=== PATIENT | female | born 1950 | race Caucasian/White ===

== ENCOUNTER 2019-03-08 12:03 | Day surgery (SDC) | payer MEDICARE, OTHER ==
[~2019-03-08] VITALS: Ht 165.1 cm; Wt 108.0 kg
--- NOTE | ~2019-03-08 | OR ---
[facility] [address], [place] [address] Draft DATE OF OPERATION: 03/08/2019 SURGEON: Estevan Thompson MD PREOPERATIVE DIAGNOSIS: Left abnormal mammogram (microcalcifications, inner lower aspect). POSTOPERATIVE DIAGNOSIS: Left abnormal mammogram (microcalcifications, inner lower aspect). PROCEDURE: Needle localized wide excisional breast biopsy. ANESTHESIA: General LMA; Estevan Garcia CRNA; and local 10 mL of 0.25% Marcaine with epinephrine. INDICATION: This 68-year-old white woman is a patient of AKANKSHA Godfrey, and was found to have an abnormal mammogram with multiple microcalcifications considered BI-RADS category 4. These were located in the left medial and lower breast. There was no palpable abnormality. Notably, she underwent left breast biopsy by me in 2007, 11 years ago on the left upper medial aspect showing atypical hyperplasia, but no sign of malignancy. A mammogram in 2019 showed an abnormality of microcalcifications. Recommendation was for image-guided biopsy. Attempts at this were unsuccessful by Dr. Sotelo as far as ability to localize the lesion stereotactically and obviously not visible on ultrasound. On that basis, she had recommended needle localized excisional biopsy and that is the purpose of operation today. She understands risks of bleeding, infection, and other unforeseen complications including cosmetic deformity and need for additional treatment should malignancy be found. She understands that and she wished to proceed. FINDINGS: The needle was entered into the left breast from medial aspect. I had reviewed the images with the radiologist prior to operation noting the microcalcifications in the midportion of the wire. Initial excision, which was meticulous and reasonably wide I thought, showed no microcalcifications in the specimen. On that basis, additional excision of tissue (excision of cavity) was undertaken. The 2nd specimen did confirm microcalcifications as hoped. DESCRIPTION OF PROCEDURE: The patient was received from radiology suite with the wire emanating from the medial PATIENT NAME: ERIKA ORANTES OPERATIVE REPORT DATE OF : 50 REPORT #: [id number] PHYSICIAN: ESTEVAN THOMPSON MD PCP: JOS BANERJEE REPORT IS CONFIDENTIAL AND NOT TO BE RELEASED WITHOUT AUTHORIZATION [facility] [address], [place] [address] Draft aspect of the left breast. She was taken to operation and given a general anesthetic. Preoperative antibiotic Ancef was given. Sequential compression device stockings used and heparin subcutaneously administered. The area of the wire entering the breast was palpated and the area of the end of the wire reasonably well discerned. A transverse incision was made not far from the needle. An incision was carried through the dermis with electrocautery. The wire was delivered into the wound and Allis clamp was used to grab the parenchyma. Using electrocautery, wide excision was undertaken along the course of the wire, which was a generous excision actually. The specimen was passed for specimen radiograph. The wound was then closed in layers of interrupted 2-0 Vicryl after assuring hemostasis and irrigating with antibiotic containing saline solution. Steri-Strips were applied as was Mepilex, silver sponge dressing. By this point, the specimen radiograph report returned from Dr. Sotelo showed there were no microcalcifications in the specimen despite a high probability it would be. On that basis, the wound was opened and the parenchyma of the breast grasped in the area of the biopsy cavity, which was linear in its configuration. Wide excision was undertaken both medially, superior, inferior, and deeply. This excision of the biopsy cavity was then sent for specimen radiograph. Meanwhile, the wound was irrigated. Hemostasis once again assured and parenchyma closed with interrupted 2-0 Vicryl and a running subcuticular 3-0 Vicryl to the skin. By this point, the specimen report had confirmed microcalcifications to be in the excised specimen. Steri-Strips had been applied to the wound after closure of the incision and Mepilex silver sponge dressing applied as was an OpSite. The patient tolerated the procedure well. BLOOD LOSS: Less than 20 mL in aggregate. COUNTS: Sponge, needle, and instrument counts reported as correct x3. MD DEMETRIA Kelly/VENKATESHL /[id number] cc: Bob Sotelo MD PATIENT NAME: ERIKA ORANTES OPERATIVE REPORT DATE OF : 50 REPORT #: [id number] PHYSICIAN: ESTEVAN THOMPSON MD PCP: JOS BANERJEE REPORT IS CONFIDENTIAL AND NOT TO BE RELEASED WITHOUT AUTHORIZATION [address] [address] Draft AKANKSHA Godfrey Copies: BOB SOTELO MD, PHYLLIS FNP ~ PATIENT NAME: ERIKA ORANTES OPERATIVE REPORT DATE OF : 50 REPORT #: [id number] PHYSICIAN: ESTEVAN THOMPSON MD PCP: JOS BANERJEE REPORT IS CONFIDENTIAL AND NOT TO BE RELEASED WITHOUT AUTHORIZATION
[~2019-03-08 12:03] MED LIST: ALFALFA MC; ALPRAZOLAM0.25 MG PO; ARNUITY ELLIPT50 MCG; ASPIR 8181 MG PO; BIOTIN5 M1 PO; DAPSONE25 MG PO; FELODIPINE ER10 MG PO; FUROSEMIDE40 MG PO; GINKGO BILOBA60 M1 PO; GLUCOSAMINE &1 EAC1 PO; LOSARTAN POTASS50 MG PO; MELOXICAM7.5 MG/5 M PO; METOPROLOL SUCC25 MG PO; METRONIDAZOLE45 GM TP; MULTI VITAMIN1 EACH PO; OMEGA-31000 MG PO; POTASSIUM CHLO10 ME1 PO; PREDNISONE10 MG PO; SINGULAIR10 MG PO; SYNTHROID100 MCG PO; TRIAMTERENE-HC1 EAC1 PO; ULTRAM50 MG PO; VASOTEC20 MG PO; VENTOLIN HFA18 GM INH
[2019-03-08] MEDS ORDERED: PAROXETINE HCL20 MG PO (12:41)
[2019-03-08] MEDS ORDERED: ASPIR-LOW81 MG PO (12:42)
[2019-03-08] MEDS ORDERED: FLUTICASONE P15.8 ML NAS (12:46)
[2019-03-08] MEDS ORDERED: CYCLOBENZAPRINE10 MG PO (12:48)
--- NOTE | 2019-03-08 16:05 | NUR ---
03/08/19 1605 Micaela Ledesma 1554-PATIENT ARRIVED TO PACU ON 10L MASK NONAROUSABLE. INTERMITTENT JAW THRUST TO MAINTAIN OPEN AIRWAY.SR. INCISION SITE TO LEFT BREAST CDI. LUNGS AUSCULTATED BY AMBER SINGH SHALLOW. 1600-HOB ELEVATED PATIENT MAINTAINING OWN AIRWAY. RR EVEN. PATIENT SLOWLY OPENING EYES. LIFTING HANDS TO FACE. 1604-ORAL AIRWAY REMOVED. PATIENT ASKING FOR DRINK OF WATER ORIENTED TO PACU AND WAITING FOR WATER. PATIENT VERY DROWSY DOZOES BACK TO SLEEP. PLACED ON 6L MASK.
[2019-03-08] MEDS ORDERED: IBUPROFEN600 MG PO (16:06)
[2019-03-08] MEDS ORDERED: TYLENOL325 MG PO (16:07)
[2019-03-08] MEDS ORDERED: OXYCODON-ACETA1 EAC2 PO (16:08)
--- NOTE | 2019-03-08 16:45 | NUR ---
ICED WATER AND PUDDING GIVEN. CALL LIGHT W/IN REACH.
--- NOTE | 2019-03-08 17:39 | NUR ---
ZAY GARCIA CALLED REGARDING EXTENDING PATIENT'S RECOVERY. MESSAGE SENT TO DR. THOMPSON LETTING HIM KNOW PATIENT WILL BE IN ROOM 123.
--- NOTE | 2019-03-08 17:54 | NUR ---
pt arrived to room 123 bedside report from anthony stroud. pt alert and oriented on arrival, she reports comfortable at this time.
--- NOTE | 2019-03-08 19:05 | NUR ---
PT GIVEN D/C EDUCATION ON FOLLOW UP, SIGNS AND SYMPTOM TO SEEK EMERGENCY CARE. MEDICATIONS LAST DOSE NEXT DOSE. PT HAS MEET ALL DISCHARGE PARAMETERS, INCLUDING AMBUALTING TO BATHROOM AND VOIDING. RX GIVEN.
--- NOTE | 2019-03-08 19:13 | NUR ---
IV SITE REMOVED WNL TIP INTACT
== END 2019-03-08 19:00 | disposition home or self-care (01) ==
LOC: DS 12:03 → EDSTATUS 13:00 → DS 13:00 → US 13:00 → MS 17:45 → DS 19:00
PROVIDERS: Surgery
PROC: 0HBU0ZX Excision of Left Breast, Open Approach, Diagnostic (ICD-10-PCS; principal; 2019-03-08 14:00)
DX: N60.12 Diffuse cystic mastopathy of left breast (principal); R92.0 Mammographic microcalcification found on diagnostic imaging of breast; I10 Essential (primary) hypertension; E03.9 Hypothyroidism, unspecified; J45.909 Unspecified asthma, uncomplicated; F41.9 Anxiety disorder, unspecified; G47.33 Obstructive sleep apnea (adult) (pediatric); E66.9 Obesity, unspecified; Z79.899 Other long term (current) drug therapy; Z79.52 Long term (current) use of systemic steroids; Z79.82 Long term (current) use of aspirin; Z68.39 Body mass index [BMI] 39.0-39.9, adult
CPT/HCPCS: 00404; 19281; 76098; 88305; J0690; J1100; J1644; J1885; J2250; J2270; J2405; J2704; J2765; J3010; J7120

== ENCOUNTER 2019-10-18 12:14 | Day surgery (SDC) | payer MEDICARE, OTHER ==
[~2019-10-18] VITALS: Ht 165.1 cm; Wt 108.4 kg
[~2019-10-18 12:14] MED LIST changes: +ASPIR-LOW81 MG PO; +CYCLOBENZAPRINE10 MG PO; +FLUTICASONE P15.8 ML NAS; +IBUPROFEN600 MG PO; +OXYCODON-ACETA1 EAC2 PO; +PAROXETINE HCL20 MG PO; +TYLENOL325 MG PO
[2019-10-18] MEDS ORDERED: NEURONTIN300 MG PO (12:37)
[2019-10-18] MEDS ORDERED: LISINOPRIL10 MG PO (12:38)
--- NOTE | 2019-10-18 14:01 | NUR ---
10/18/19 1401 Zayra Gardner 1345 PT ARRIVED IN PACU WIDE AWAKE TALKING TO STAFF. ABD SOFT. BLOOD SUGAR 68 ON ARRIVAL. 1350 SITTING UP IN BED SIPPING ON GRAPE JUICE. 1355 DR AT BEDSIDE TALKING WITH PT.
--- NOTE | 2019-10-20 17:27 | OR ---
[facility] [address] [place], [place] [address] Signed DATE OF OPERATION: 10/18/2019 SURGEON: Estevan Thompson MD PREOPERATIVE DIAGNOSIS: Family history of colon cancer (mother). POSTOPERATIVE DIAGNOSIS: Sigmoid diverticulosis and mild proctitis. PROCEDURE: Total colonoscopy to cecum with biopsy of rectum. ANESTHESIA: Intravenous sedation, fentanyl 100 mcg, Versed 4 mg. INDICATION: This 69-year-old white woman is a patient of AKANKSHA Benitez. She is known to me from the past having undergone breast biopsy. She has been recommended for surveillance colonoscopy on the basis of family history of colon cancer in her mother. The patient is generally symptom-free as regard to colon. Of special note, the patient underwent laparoscopic cholecystectomy in August of 2019 at [facility] and she has recovered well from it apparently. FINDINGS: The prep was good. Complete colonoscopy was undertaken to the cecum without question. She had numerous diverticula of the sigmoid and left colon, but no sign of polyps. There was mild proctitis. Biopsy was obtained. DESCRIPTION OF PROCEDURE: The patient was brought to the endoscopy suite and placed in lateral decubitus position, given intravenous sedation to the point of slurred speech and nystagmus. Digital rectal examination was normal. An Olympus video colonoscope was passed in the rectum and manipulated throughout the colon ultimately intubating the cecum. Ileocecal valve was normal. Scope was withdrawn from that point. Examination throughout showed no sign of polyps or colitis, but numerous diverticula of the left colon and sigmoid. Retroflexed view of the rectum showed a hypertrophied anal papilla. There was mild proctitis and biopsies obtained. Electronically Signed By: ESTEVAN THOMPSON MD 10/20/19 1727 PATIENT NAME: ERIKA ORANTES OPERATIVE REPORT DATE OF : 50 REPORT #: [id number] PHYSICIAN: ESTEVAN THOMPSON MD PCP: ELIEL MCCAIN MD REPORT IS CONFIDENTIAL AND NOT TO BE RELEASED WITHOUT AUTHORIZATION [facility] [address] [place] [address] [place] [address] Signed The scope was removed. The patient was taken to recovery room in good condition. CONCLUDING DIAGNOSES: 1. Mild proctitis. 2. Diverticulosis. PLAN: Recommend repeat colonoscopy in 5 years based on family history of colon cancer in her mother. She will return to the ongoing care of AKANKSHA Benitez. MD DEMETRIA Kelly/MODL /[id number] cc: AKANKSHA Godfrey Copies: JOS BANERJEE ~ Electronically Signed By: ESTEVAN THOMPSON MD 10/20/19 1727 PATIENT NAME: ERIKA ORANTES OPERATIVE REPORT DATE OF : 50 REPORT #: [id number] PHYSICIAN: ESTEVAN THOMPSON MD PCP: ELIEL MCCAIN MD REPORT IS CONFIDENTIAL AND NOT TO BE RELEASED WITHOUT AUTHORIZATION
== END 2019-10-18 14:26 | disposition home or self-care (01) ==
LOC: OPS 12:14 → DS 12:15 → OPS 13:00
PROVIDERS: Surgery
PROC: 0DBP8ZX Excision of Rectum, Via Natural or Artificial Opening Endoscopic, Diagnostic (ICD-10-PCS; principal; 2019-10-18 13:00)
DX: Z12.11 Encounter for screening for malignant neoplasm of colon (principal); K62.5 Hemorrhage of anus and rectum; K62.89 Other specified diseases of anus and rectum; K57.30 Diverticulosis of large intestine without perforation or abscess without bleeding; Z80.0 Family history of malignant neoplasm of digestive organs
CPT/HCPCS: 88305; 99153; G0500; J0690; J2250; J3010; J7121

== ENCOUNTER 2020-03-20 06:30 | Day surgery (SDC) | payer MEDICARE, OTHER ==
[~2020-03-20] VITALS: Ht 165.1 cm; Wt 97.5 kg
--- NOTE | ~2020-03-20 | OR ---
[facility] [facility] [address], [place] [address] Draft DATE OF OPERATION: 03/20/2020 SURGEON: Estevan Thompson MD PREOPERATIVE DIAGNOSIS: Painful incisional hernia at the supraumbilical trocar site. POSTOPERATIVE DIAGNOSIS: Painful incisional hernia at the supraumbilical trocar site, defect 4 cm. PROCEDURE: 1. Repair of incisional hernia. 2. Implant of Prolene mesh, properitoneal space with medialization of the linea alba. ANESTHESIA: General endotracheal; Rao Jc, PROFESSOR [employer], and 10 mL of 0.25% Marcaine with epinephrine. INDICATION: This 69-year-old somewhat obese white woman underwent laparoscopic cholecystectomy with cholangiogram at [facility] greater than a year ago. She was said to have sore throat following operation and fair amount of wheezing postoperatively. She has developed a hernia in the area of the supraumbilical trocar site incision. It is reducible, but has enlarged over time. Plans were made to repair back in November; however, the COVID pandemic scuttled our plan for that. She has had increasing pain and increasing size of the hernia and she is now admitted to undergo repair of the hernia. She understands risks of bleeding, infection, recurrence, and other unforeseen complications and wished to proceed. FINDINGS: Directly beneath the skin was colon itself. There was no hernia sac. This suggests to me that she had probably immediate wound dehiscence time of her cholecystectomy previously. The viscus was the colon itself. It was able to be reduced and repair undertaken by implantation of Prolene mesh in an underlay technique in the properitoneal space. Peritoneum was reapproximated over the intraabdominal viscera providing a biologic barrier to the mesh. Additionally, the fascial edges were medialized with interrupted horizontal Prolene sutures with Prolene pledgets throughout. She did have significant straining at conclusion of the operation. The abdominal wound was stabilized and I believe that the repair has held up. She did have reactive airways and received albuterol at conclusion of the case. PATIENT NAME: ERIKA ORANTES OPERATIVE REPORT DATE OF : 50 REPORT #: [id number] PHYSICIAN: ESTEVAN THOMPSON MD PCP: PHILLIP COLEMAN MD REPORT IS CONFIDENTIAL AND NOT TO BE RELEASED WITHOUT AUTHORIZATION [facility] [address], [place] [address] Draft DESCRIPTION OF PROCEDURE: The patient was brought to the operating room, given a general endotracheal anesthetic. Preoperative antibiotic Ancef was given. Sequential compression device stockings used and heparin subcutaneously administered. The abdomen was prepared with a chlorhexidine solution and draped sterilely. A transverse incision was noted superior to the umbilicus itself. An incision was made vertically, which was somewhat cephalad to the transverse incision. Dissection carried through the dermis with care showing immediately colonic hernia contents without a hernia sac proper. The omentum was adherent to the subcutaneous space. Full dissection of this was undertaken, reducing the colon and omentum into the peritoneal cavity. Again, there was no evidence of a hernia sac proper. The fascial edges were grasped and the peritoneum incised and freed circumferentially so as to provide a biologic barrier for intended implant of Prolene mesh in the properitoneal space. Once circumferential freeing of the peritoneum was accomplished, the peritoneal edges were reapproximated with running 2-0 Vicryl suture. A segment of Prolene mesh was cut to an elliptical configuration and secured in the properitoneal space with interrupted 0 Prolene sutures with Prolene pledgets. Midline fascia was then reapproximated to the midline again using 0 Prolene in a horizontal mattress configuration with Prolene pledgets once again. A 10 mL of 0.25% Marcaine was injected locally into the incision itself. Evens's layer was reapproximated with interrupted 2-0 Vicryl and skin closed with running subcuticular 3-0 Vicryl. Steri-Strips were applied as was a silver sponge dressing. At that point, the patient had a fair amount of straining and coughing and whatnot prior to extubation. She has had a fair amount of wheezing. Bronchodilator was administered by the manager fiber and once things settled, she was fully extubated. Careful monitoring showed good resumption of her oxygenation, no further straining. She was transported from the operating room to the recovery room in good condition having suffered no complications. Sponge, needle, and instrument counts were reported as correct x3. MD DEMETRIA Kelly/MODL /[id number] PATIENT NAME: ERIKA ORANTES OPERATIVE REPORT DATE OF : 50 REPORT #: [id number] PHYSICIAN: ESTEVAN THOMPSON MD PCP: PHILLIP COLEMAN MD REPORT IS CONFIDENTIAL AND NOT TO BE RELEASED WITHOUT AUTHORIZATION [place] [address] Draft cc: MD Adela Perez FNP Copies: PHILLIP COLEMAN MD, PHYLLIS FNP ~ PATIENT NAME: JANELLEMORGAN HUIAN RODRIGUEZ OPERATIVE REPORT DATE OF : 50 REPORT #: [id number] PHYSICIAN: ESTEVAN THOMPSON MD PCP: PHILLIP COLEMAN MD REPORT IS CONFIDENTIAL AND NOT TO BE RELEASED WITHOUT AUTHORIZATION
[~2020-03-20 06:30] MED LIST changes: +B COMPLEX1 EACH PO; +LISINOPRIL10 MG PO; +METFORMIN HCL1000 MG PO; +NEURONTIN300 MG PO; +OMEGA 3 1,0001 EACH PO; +TURMERIC500 M2 PO
--- NOTE | 2020-03-20 09:49 | NUR ---
03/20/20 0949 Sheets,Concepcion 0940 PT ARRIVED TO PACU WITH ORAL AIRWAY IN PLACE O2 SAT 92% ON 6L VIA MASK. 0941 O2 INCREASED TO 10L O2 INCREASING TO MID 90S. PT NONAROUSABLE. RESP EVEN AND UNLABORED.
[2020-03-20] MEDS ORDERED: IBUPROFEN600 MG PO (09:55)
[2020-03-20] MEDS ORDERED: OXYCODON-ACETA1 EAC2 PO (09:56)
[2020-03-20] MEDS ORDERED: TYLENOL EXTRA500 MG PO (09:56)
--- NOTE | 2020-03-20 10:31 | NUR ---
PT IS BACK TO DS FROM PACU. SHE IS BACK TO HER BASELINE PRIOR TO SURGERY. SHE IS REPORTING MAINIMAL PAIN. WATER ON BEDSIDE TABLE. CALL LIGHT WITHIN REACH. SHE HAS A PILLOW TO THE ABDOMEN TO BRACE WHEN COUGHING, SHE IS PRACTICING DEEP BREATHING. NO ADDITIONAL NEEDS AT THIS TIME.
--- NOTE | 2020-03-20 11:54 | NUR ---
PT IS ABLE TO TOLERATE WATER AND PUDDING. SHE HAS BEEN GIVEN A PAIN PILL, REPORTS IT IS WORKING AND HER PAIN IS LESSENING. CALL LIGHT WITHIN REACH. NO ADDITIONAL NEEDS.
--- NOTE | 2020-03-20 13:21 | NUR ---
LE 1250: PT IS ASSISTED UP OOB TO USE THE RESTROOM. SHE AMBULATES INDEPENDENTLY. SHE IS WOULD LIKE TO GO HOME AT THIS TIME. SHE IS GIVEN EDUCATION ON HOW TO BEST DRESS HERSELF.
--- NOTE | 2020-03-20 13:24 | NUR ---
PT IS GIVEN VERBAL DC INSTRUCTIONS. SHE VERBALIZES UNDERSTANDING. QUESTIONS ARE ASKED AND ANSWERED. IS CALLED TO MEET US AT THE FRONT DOORS. SHE IS TAKEN TO VEHICLE VIA WC, SHE IS ABLE TO TRANSFER HERSELF.
== END 2020-03-20 13:05 | disposition home or self-care (01) ==
LOC: DS 06:30
PROVIDERS: Surgery
PROC: 0WUF0JZ Supplement Abdominal Wall with Synthetic Substitute, Open Approach (ICD-10-PCS; 2020-03-20)
PROC: 0WUF0JZ Supplement Abdominal Wall with Synthetic Substitute, Open Approach (ICD-10-PCS; principal; 2020-03-20 08:00)
DX: K43.2 Incisional hernia without obstruction or gangrene (principal); I10 Essential (primary) hypertension; E03.9 Hypothyroidism, unspecified; E11.9 Type 2 diabetes mellitus without complications; F41.9 Anxiety disorder, unspecified; J45.909 Unspecified asthma, uncomplicated; G47.33 Obstructive sleep apnea (adult) (pediatric); Z99.89 Dependence on other enabling machines and devices; Z79.899 Other long term (current) drug therapy; Z79.84 Long term (current) use of oral hypoglycemic drugs; Z79.82 Long term (current) use of aspirin; Z90.49 Acquired absence of other specified parts of digestive tract
CPT/HCPCS: 00832; C1781; J0690; J1100; J1644; J1885; J2001; J2370; J2405; J2704; J3010; J7121